=== PATIENT | female | born 1995 | race Caucasian/White ===

== ENCOUNTER 2016-08-19 12:10 | Emergency (ER) | payer BC, OTHER ==
[~2016-08-19] VITALS: Ht 172.7 cm; Wt 53.9 kg
[2016-08-19 12:13] VITALS: TEMP 36.6; Ht 172.7 cm; Wt 53.9 kg
[2016-08-19 12:17] VITALS: O2SAT 100
[2016-08-19] MEDS ORDERED: SODIUM CHLORIDE 0.9% 1000ML 1,000 ML IV STA (12:22)
[2016-08-19] MEDS ORDERED: SUMA50TA15 PO (12:25)
[2016-08-19 12:39] LABS: URINE APPEARANCE CLEAR (CLEAR); URINE BILIRUBIN NEG (NEG); URINE COLOR DK YELLOW; URINE NITRITE NEG (NEG); URINE PH 5.5 (4.5-7.5); URINE SPECIFIC GRAVITY 1.029 (1.000-1.030); UROBILINOGEN NEG (NEG)
[2016-08-19 12:43] LABS: MANUAL MICROSCOPIC REQUIRED? NO; REVIEW REQ? NO
[2016-08-19 13:15] LABS: BASO % 0.5 %; BASO ABS # 0.03 K/uL (0-0.2); COMPLETE YES; EOS % 1.2 %; HEMATOCRIT 39.3 % (37-47); IG% 0.2 %; LYMPH % 25.5 %; LYMPH ABS # 1.52 K/uL (1.2-3.4); MEAN CELL VOLUME 83.3 fL (80-100); MEAN CORPUSCULAR HEMOGLOBIN 29.2 pg (25-34); MEAN CORPUSCULAR HGB CONC 35.1 g/dl (32-36); MEAN PLATELET VOLUME 10.4 fL (7.4-10.4); MONO % 5.5 %; NEUT % 67.1 %; PLATELET COUNT 202 K/uL (130-400); RED BLOOD COUNT 4.72 M/uL (4.2-5.4); WHITE BLOOD COUNT 5.95 K/uL (4.8-10.8)
[2016-08-19 13:33] LABS: BUN/CREATININE RATIO 17.6 (10-20); CALCIUM 8.7 mg/dl (8.5-10.1); CREATININE 0.76 mg/dl (0.60-1.20); POTASSIUM 3.9 mmol/L (3.5-5.1)
[2016-08-19 13:44] LABS: THYROID STIMULATING HORMONE 1.46 uIu/ml (0.300-4.500)
[2016-08-19 15:01] VITALS: BP 122/74; PULSE 67; O2SAT 99
--- NOTE | 2016-08-19 20:48 | EMERGENCY ROOM VISIT NOTE ---
History Report prepared by Saba: Virginia Correia Under the Supervision of: Dr. Singh Mccallum M.D. First contact with patient: 12:22 Chief Complaint: SYNCOPE Stated Complaint: SYNCOPE, FALL Nursing Triage Summary: was at work became warm and passed out woke up on the floor. hit head. no complaints at this time. History of Present Illness The patient is a 21 year old female who presents to the Emergency Room with complaints of a syncopal episode that occurred today. The patient states that she was at work and started to feel hot. About a minute later, she passed out from a standing position. She hit her head on the wall on the way to the ground. She is unsure how long she was unconscious for, but states that she was laying on the ground for about five minutes. Afterwards, she had some head pain , but currently she denies head pain or headache. She denies any other injuries or cuts from the fall. Currently, she is asymptomatic. She notes that she had one syncopal episode in the past while she was watching a surgery. She has a history of one seizure when she was in 3rd grade but is not on seizure medications and has not had a seizure since. The cause of the seizure at that time was unknown. She states that she has been eating and sleeping well the past few days. The patient's last menstrual period was a week and a half ago and was normal. Pt denies fevers, chills, diaphoresis, visual changes, neck pain , chest pain, breathing difficulties, nausea, vomiting, abdominal pain, back pain, melena, hematochezia, urinary symptoms, numbness, weakness, lymphadenopathy, rash, or other complaints. She has not had any recent long travel. Source of History: patient Onset: today Position: other (global) Quality: other (syncope) Timing: other (episode) Note: Other symptoms - head pain (resolved) Review of Systems See HPI for pertinent positives and negatives. A total of ten systems were reviewed and were otherwise negative. Past Medical & Surgical Medical Problems: (1) Migraine (2) Seizure-like activity Surgical Problems: (1) H/O adenoidectomy (2) H/O tympanostomy (3) H/O wisdom tooth extraction (4) S/P tonsillectomy Family History No pertinent family history stated. Social History Smoking Status: Never Smoker Marital Status: single Occupation Status: employed Current/Historical Medications Scheduled Sumatriptan Succinate (Imitrex), 50 MG PO PRN Allergies Coded Allergies: No Known Allergies (Unverified , 06/03/12) Physical Exam Vital Signs Date Time Temp Pulse Resp B/P Pulse Ox O2 Delivery O2 Flow Rate FiO2 08/19/16 15:01 67 20 122/74 99 08/19/16 14:10 86 20 110/69 100 Room Air 08/19/16 12:38 77 08/19/16 12:19 79 110/75 Room Air 75 118/82 101 112/77 08/19/16 12:17 100 Room Air 08/19/16 12:13 36.6 83 20 124/80 100 Room Air Physical Exam GENERAL: Awake, alert, well appearing, no distress HENT: Normocephalic, tiny abrasion to the right posterior superior occiput. TM' s normal. Oropharynx unremarkable. EYES: PERRL. EOMI. Normal conjunctiva. Sclera non-icteric. NECK: Supple. No nuchal rigidity. FROM. No JVD or bruit. RESPIRATORY: CTA CARDIAC: RRR. No murmur. ABDOMEN: Soft, non distended. No tenderness to palpation. No rebound or guarding. No masses. RECTAL: Deferred. MUSCULOSKELETAL: Unremarkable. No edema. No discoloration. Gross motor strength symmetric. NEURO: Cranial nerves 2-12 grossly intact. Normal sensorium. No sensory or motor deficits noted. Speech normal. No pronator drift. GCS 15. SKIN: No rash or jaundice noted. LYMPH: No adenopathy. Medical Decision & Procedures Laboratory Results 08/19/16 13:04 Red Blood Count 4.72, Mean Corpuscular Volume 83.3, Mean Corpuscular Hemoglobin 29.2, Mean Corpuscular Hemoglobin Concent 35.1, Mean Platelet Volume 10.4, Neutrophils (%) (Auto) 67.1, Lymphocytes (%) (Auto) 25.5, Monocytes (%) (Auto) 5.5, Eosinophils (%) (Auto) 1.2, Basophils (%) (Auto) 0.5, Neutrophils # (Auto) 3.99, Lymphocytes # (Auto) 1.52, Monocytes # (Auto) 0.33, Eosinophils # (Auto) 0.07, Basophils # (Auto) 0.03 08/19/16 13:04 Test 08/19/16 12:30 08/19/16 12:58 08/19/16 13:04 Urine Color DK YELLOW Urine Appearance CLEAR (CLEAR) Urine pH 5.5 (4.5-7.5) Urine Specific [place] 1.029 (1.000-1.030) Urine Protein NEG (NEG) Urine Glucose (UA) NEG (NEG) Urine Ketones NEG (NEG) Urine Occult Blood NEG (NEG) Urine Nitrite NEG (NEG) Urine Bilirubin NEG (NEG) Urine Urobilinogen NEG (NEG) Urine Leukocyte Esterase NEG (NEG) Urine Test NEG (NEG) Bedside Glucose 92 mg/dl (70-90) White Blood Count 5.95 K/uL (4.8-10.8) Red Blood Count 4.72 M/uL (4.2-5.4) Hemoglobin 13.8 g/dL (12.0-16.0) Hematocrit 39.3 % (37-47) Mean Corpuscular Volume 83.3 fL (80-100) Mean Corpuscular Hemoglobin 29.2 pg (25-34) Mean Corpuscular Hemoglobin Concent 35.1 g/dl (32-36) Platelet Count 202 K/uL (130-400) Mean Platelet Volume 10.4 fL (7.4-10.4) Neutrophils (%) (Auto) 67.1 % Lymphocytes (%) (Auto) 25.5 % Monocytes (%) (Auto) 5.5 % Eosinophils (%) (Auto) 1.2 % Basophils (%) (Auto) 0.5 % Neutrophils # (Auto) 3.99 K/uL (1.4-6.5) Lymphocytes # (Auto) 1.52 K/uL (1.2-3.4) Monocytes # (Auto) 0.33 K/uL (0.11-0.59) Eosinophils # (Auto) 0.07 K/uL (0-0.5) Basophils # (Auto) 0.03 K/uL (0-0.2) RDW Standard Deviation 38.7 fL (36.4-46.3) RDW Coefficient of Variation 12.8 % (11.5-14.5) Immature Granulocyte % (Auto) 0.2 % Immature Granulocyte # (Auto) 0.01 K/uL (0.00-0.02) Anion Gap 7.0 mmol/L (3-11) Est Creatinine Clear Calc Drug Dose 99.6 ml/min Estimated GFR () 130.0 Estimated GFR (Non- 112.1 BUN/Creatinine Ratio 17.6 (10-20) Calcium Level 8.7 mg/dl (8.5-10.1) Total Bilirubin 1.5 mg/dl (0.2-1) Direct Bilirubin 0.3 mg/dl (0-0.2) Aspartate Amino Transf (AST/SGOT) 14 U/L (15-37) Alanine Aminotransferase (ALT/SGPT) 17 U/L (12-78) Alkaline Phosphatase 62 U/L (45-117) Total Protein 7.1 gm/dl (6.4-8.2) Albumin 4.1 gm/dl (3.4-5.0) Thyroid Stimulating Hormone (TSH) 1.460 uIu/ml (0.300-4.500) Laboratory results reviewed by me Medications Administered Medications (Trade) Dose Ordered Sig/Bernie Route Start Time Stop Time Status Last Admin Dose Admin Sodium Chloride (Nss 1000ml) 1,000 ml @ 999 mls/hr Q1H1M STAT IV 08/19/16 12:22 08/19/16 13:22 DC 08/19/16 13:08 999 MLS/HR ECG Indication: syncope Rate (beats per minute): 79 Rhythm: sinus with SA Findings: no acute ischemic change, no ectopy ED Course 1222: Ordered NSS 1000 ml @ 999 mls/hr IV. 1230: The patient was evaluated in room B2. A complete history and physical exam was performed. 1415: I reevaluated the patient. She was resting comfortably. Discussed results and discharge instructions: She verbalized understanding and agreement. The patient is ready for discharge. I advised her not to drive today. Medical Decision Prior records/ancillary studies reviewed. Triage Nursing notes reviewed and agree them. Additional history obtained from the family. The patient's history was concerning for syncope. Differential diagnosis: Etiologies such as infection, hypoglycemia, electrolyte abnormalities, cardiac sources, intracerebral event, toxicologic, neurologic, as well as others were entertained. Physical examination: As above. Clinically the patient looks well. No significant signs of trauma. ER treatment provided: IV hydration with normal saline On reassessment the patient felt better. Diagnostics interpretation by me: ECG: Normal as above. No preexcitation. The labs revealed an unremarkable CBC, chemistry panel, TSH, urinalysis and negative . The patient had minimal elevation of her bili functions but has had no GI complaints. This appears most consistent with benign incidental elevation. Imaging studies: Deferred. The patient had a syncopal episode that sounds most consistent with a vasovagal event. She had a prodrome. She was standing for an extended period. She fell into a wall and then down onto the floor. She did not suffer any significant trauma. She has no symptoms at this time I discussed deferring CT imaging. The patient was in agreement. Diagnostic workup was unremarkable as above. I discussed conservative management. She felt comfortable with this. If she worsens or has any issue she will come back.I gave my usual and customary discussion regarding this issue. By the evaluation outlined above emergent etiologies such as infection, hypoglycemia, electrolyte abnormalities, cardiac sources, intracerebral event, toxicologic, trauma, neurologic,as well as others were deemed relatively unlikely. The patient and family were informed about the findings as listed above. All questions were answered and they were pleased with the treatment. Return instructions were outlined and the patient was discharged in stable condition. Outpatient prescription management: None Referral: The patient was referred back to her primary care physician for follow-up in 2 to 3 days for a recheck of the current condition. The chart was completed utilizing [employer] Speech voice recognition software. Grammatical errors, random word insertions, pronoun errors, and incomplete sentences are an occasional consequence of this system due to software limitations, ambient noise, and hardware issues. Any formal questions or concerns about the content, text, or information contained within the body of this dictation should be directly addressed to the physician for clarification. Impression Primary Impression: Syncope Scribe Attestation The scribe's documentation has been prepared under my direction and personally reviewed by me in its entirety. I confirm that the note above accurately reflects all work, treatment, procedures, and medical decision making performed by me. Departure Information Dispostion Home / Self-Care Forms HOME CARE DOCUMENTATION FORM, IMPORTANT VISIT INFORMATION Patient Instructions My [facility] Additional Instructions SYNCOPE(passing out) INSTRUCTIONS: Acetaminophen(Tylenol) may be used for fever or pain. Use 1000mg every six hours as needed. Avoid using more than 4000mg in a 24 hour period. Rest and drink plenty of fluids as tolerated. Continue current medications. Return to the ER for passing out, chest pain, headache, persistent vomiting, fevers, abdominal pain, chest pains, difficulty breathing, black or bloody stools, worsening of your condition, or as needed. Follow up with your primary physician in 2-3 days for a recheck of your current condition
== END 2016-08-19 15:02 | disposition home or self-care (01) ==
LOC: EDBD 12:10 → C.EDB 12:11
DX: R55 Syncope and collapse (principal); G43.909 Migraine, unspecified, not intractable, without status migrainosus

== ENCOUNTER 2017-04-06 22:36 | Emergency (ER) | payer BC ==
[~2017-04-06] VITALS: Ht 172.7 cm; Wt 55.7 kg
[~2017-04-06 22:36] MED LIST: SUMA50TA15 PO
[2017-04-06 22:41] VITALS: TEMP 36.9; Ht 172.7 cm; Wt 55.7 kg
--- NOTE | 2017-04-06 22:59 | EMERGENCY ROOM VISIT NOTE ---
History First contact with patient: 22:43 Chief Complaint: ARM PAIN Stated Complaint: ARM SWOLLEN History of Present Illness The patient is a 21 year old female who presents to the Emergency Room with complaints of right upper arm swelling. The patient states that she had a migraine headache and her mother gave her 25 mg Phenergan intramuscularly in the right deltoid approximately 6 hours ago. She does state this improved her headache, however she now has swelling in her right upper arm. Her mother was concerned about a possible reaction and brought her here for evaluation. The patient reports minimal pain in the area for swelling. She denies any itching, shortness of breath, difficulty swallowing, rashes, nausea or vomiting. This is the first time that she has used this medication. Review of Systems A complete 10 point review of systems was reviewed with the patient with pertinent positives and negatives as per history of present illness. All else were negative. Past Medical/Surgical History Medical Problems: (1) Migraine (2) Seizure-like activity Surgical Problems: (1) H/O adenoidectomy (2) H/O tympanostomy (3) H/O wisdom tooth extraction (4) S/P tonsillectomy Social History Smoking Status: Never Smoker Marital Status: single Occupation Status: employed Current/Historical Medications No Active Prescriptions or Reported Meds Physical Exam Vital Signs Date Time Temp Pulse Resp B/P (MAP) Pulse Ox O2 Delivery O2 Flow Rate FiO2 04/06/17 23:05 75 16 121/79 98 04/06/17 22:41 36.9 75 16 121/79 98 Room Air Physical Exam VITALS: Vitals are noted on the nurse's note and reviewed by myself. Vital signs stable. GENERAL: This is a 21-year-old female, in no acute distress, nondiaphoretic, well-developed well-nourished. MUSCULOSKELETAL: There is mild edema of the right lateral deltoid area. There is minimal tenderness to palpation. There is no erythema or warmth. NEURO: Patient was alert and oriented to person place and time. Medical Decision & Procedures Medical Decision Differential diagnosis includes localized reaction, allergic reaction, fractured needle, abscess, cellulitis, among others. The patient was evaluated as above. There is no evidence of infection on exam. She has some mild swelling in the area consistent with a localized reaction to the intramuscular medication. The patient was advised to take Benadryl and use warm compresses over the area to help reduce pain and swelling. She was encouraged to watch the area closely and return or go to her primary care provider for any worsening or new/concerning symptoms. The patient and mother were agreeable to the assessment and treatment plan. They verbalized understanding of my assessment and treatment plan and the patient was discharged home in good condition. Medication Reconcilliation Current Medication List: was personally reviewed by me Blood Pressure Screening Patient's blood pressure: Normal blood pressure Impression Primary Impression: Localized adverse drug reaction Departure Information Dispostion Home / Self-Care Condition GOOD Prescriptions No Active Prescriptions or Reported Meds Referrals No Doctor, Assigned (PCP) Patient Instructions My [facility] Additional Instructions Benadryl, 25 mg by mouth every 6 hours until swelling has resolved. Use warm compresses over the right upper arm to help relieve swelling. If you develop increased redness, swelling, warmth or any other new/concerning symptoms, return here or go to your primary care provider for recheck.
[2017-04-06 23:05] VITALS: BP 121/79; PULSE 75; O2SAT 98
== END 2017-04-06 23:06 | disposition home or self-care (01) ==
LOC: C.EDB 22:37 → C.EDA 23:06
DX: R60.0 Localized edema (principal); T42.6X5A Adverse effect of other antiepileptic and sedative-hypnotic drugs, initial encounter; G43.909 Migraine, unspecified, not intractable, without status migrainosus